=== PATIENT | male | born 1995 | race Caucasian/White ===

== ENCOUNTER 2017-03-26 13:37 | Emergency (ER) | payer BC ==
[~2017-03-26] VITALS: Ht 175.3 cm; Wt 69.9 kg
[2017-03-26 13:50] VITALS: Ht 175.3 cm; Wt 69.9 kg
[2017-03-26] MEDS ORDERED: DEXAMETHASONE SOD INJ 4 MG/ML VIAL IV STA (14:14)
[2017-03-26] MEDS ORDERED: KETOROLAC TROMETHAMINE 30 MG/ML VIAL IV STA (14:14)
[2017-03-26] MEDS ORDERED: SODIUM CHLORIDE 0.9% 1000ML 1,000 ML IV ONE (14:15)
[2017-03-26 14:44] LABS: BASO % 0.1 %; BASO ABS # 0.01 K/uL (0-0.2); COMPLETE YES; EOS % 0.2 %; HEMATOCRIT 49.6 % (42-52); IG% 0.2 %; LYMPH % 10.7 %; LYMPH ABS # 1.17 K/uL (1.2-3.4); MEAN CORPUSCULAR HEMOGLOBIN 31.2 pg (25-34); MEAN CORPUSCULAR HGB CONC 34.3 g/dl (32-36); MEAN PLATELET VOLUME 11.5 fL (7.4-10.4); MONO % 14.2 %; NEUT % 74.6 %; PLATELET COUNT 157 K/uL (130-400); RED BLOOD COUNT 5.45 M/uL (4.7-6.1); WHITE BLOOD COUNT 10.92 K/uL (4.8-10.8)
--- NOTE | 2017-03-26 14:58 | EMERGENCY ROOM VISIT NOTE ---
History First contact with patient: 13:57 Chief Complaint: SORETHROAT Stated Complaint: SEVERE SORETHROAT, INFLAMMED TONSIL, FEVER History of Present Illness The patient is a 22 year old male who presents to the Emergency Room with complaints of a severe sore throat that started 4 days ago. The patient was seen at [facility] 3 nights ago. He was prescribed clindamycin, which he has been taking with minimal relief. He also complains of a fever. He has not taken his temperature at home. He is taking Tylenol and ibuprofen with minimal relief. He denies any cough. No neck pain. He denies any significant headache. The patient was tested for strep at [facility]. The rapid strep was negative. Review of Systems 10 system review performed and negative unless noted in HPI or below Past Medical/Surgical History Otherwise healthy Social History Smoking Status: Never Smoker Occupation Status: [employer] student Current/Historical Medications No Active Prescriptions or Reported Meds Physical Exam Vital Signs Date Time Temp Pulse Resp B/P (MAP) Pulse Ox O2 Delivery O2 Flow Rate FiO2 03/26/17 16:59 36.7 03/26/17 13:50 Room Air 03/26/17 13:50 37.3 94 20 135/88 93 Room Air Physical Exam VITALS: Vitals are noted on the nurse's note and reviewed by myself. Vital signs stable. GENERAL: 22-year-old male, mildly uncomfortable in appearance, SKIN: The skin was without rashes, erythema, edema, or bruising. HEAD: Normocephalic atraumatic. EARS: External auditory canals clear, tympanic membranes pearly diaz without erythema or effusion bilaterally. EYES: Conjunctivae without injection, sclerae without icterus. Extraocular movements intact. NOSE:No sinus tenderness. MOUTH: Mucous membranes tonsils are edematous, erythematous and have white plaques noted bilaterally. No involvement of the soft palate.. Uvula midline. Airway patent. Tongue does not deviate. No trismus. NECK: Lymphadenopathy noted in the anterior cervical chain bilaterally. No nuchal rigidity. HEART: Regular rate and rhythm without murmurs gallops or rubs. LUNGS: Clear to auscultation bilaterally without wheezes, rales or rhonchi. No accessory muscle use. ABDOMEN: Positive bowel sounds x 4.Soft, nontender, without organomegaly. No guarding or rebound tenderness. MUSCULOSKELETAL: No muscle atrophy, erythema, or edema noted. Strength 5/5 throughout. NEURO: Patient was alert and oriented to person place and time. Normal sensation to touch. No focal neurological deficits. Medical Decision & Procedures Laboratory Results 03/26/17 14:35 Red Blood Count 5.45, Mean Corpuscular Volume 91.0, Mean Corpuscular Hemoglobin 31.2, Mean Corpuscular Hemoglobin Concent 34.3, Mean Platelet Volume 11.5, Neutrophils (%) (Auto) 74.6, Lymphocytes (%) (Auto) 10.7, Monocytes (%) (Auto) 14.2, Eosinophils (%) (Auto) 0.2, Basophils (%) (Auto) 0.1, Neutrophils # (Auto ) 8.15, Lymphocytes # (Auto) 1.17, Monocytes # (Auto) 1.55, Eosinophils # (Auto ) 0.02, Basophils # (Auto) 0.01 03/26/17 14:35 Test 03/26/17 14:35 White Blood Count 10.92 K/uL (4.8-10.8) Red Blood Count 5.45 M/uL (4.7-6.1) Hemoglobin 17.0 g/dL (14.0-18.0) Hematocrit 49.6 % (42-52) Mean Corpuscular Volume 91.0 fL (80-100) Mean Corpuscular Hemoglobin 31.2 pg (25-34) Mean Corpuscular Hemoglobin Concent 34.3 g/dl (32-36) Platelet Count 157 K/uL (130-400) Mean Platelet Volume 11.5 fL (7.4-10.4) Neutrophils (%) (Auto) 74.6 % Lymphocytes (%) (Auto) 10.7 % Monocytes (%) (Auto) 14.2 % Eosinophils (%) (Auto) 0.2 % Basophils (%) (Auto) 0.1 % Neutrophils # (Auto) 8.15 K/uL (1.4-6.5) Lymphocytes # (Auto) 1.17 K/uL (1.2-3.4) Monocytes # (Auto) 1.55 K/uL (0.11-0.59) Eosinophils # (Auto) 0.02 K/uL (0-0.5) Basophils # (Auto) 0.01 K/uL (0-0.2) RDW Standard Deviation 40.5 fL (36.4-46.3) RDW Coefficient of Variation 12.3 % (11.5-14.5) Immature Granulocyte % (Auto) 0.2 % Immature Granulocyte # (Auto) 0.02 K/uL (0.00-0.02) Anion Gap 7.0 mmol/L (3-11) Est Creatinine Clear Calc Drug Dose 102.2 ml/min Estimated GFR () 106.7 Estimated GFR (Non- 92.1 BUN/Creatinine Ratio 9.6 (10-20) Calcium Level 9.1 mg/dl (8.5-10.1) Total Bilirubin 0.7 mg/dl (0.2-1) Aspartate Amino Transf (AST/SGOT) 22 U/L (15-37) Alanine Aminotransferase (ALT/SGPT) 21 U/L (12-78) Alkaline Phosphatase 58 U/L (45-117) Total Protein 8.2 gm/dl (6.4-8.2) Albumin 4.0 gm/dl (3.4-5.0) Globulin 4.2 gm/dl (2.5-4.0) Albumin/Globulin Ratio 1.0 (0.9-2) Monoscreen NEG (NEG) Medications Administered Medications (Trade) Dose Ordered Sig/Sangeeta Route Start Time Stop Time Status Last Admin Dose Admin Sodium Chloride 1,000 ml @ 999 mls/hr Q1H1M ONCE IV 03/26/17 14:15 03/26/17 15:15 DC 03/26/17 14:42 999 MLS/HR Dexamethasone Sodium Phosphate (Decadron Inj) 10 mg NOW STAT IV 03/26/17 14:14 03/26/17 14:23 DC 03/26/17 14:38 10 MG Ketorolac Tromethamine (Toradol Inj) 30 mg NOW STAT IV 03/26/17 14:14 03/26/17 14:23 DC 03/26/17 14:39 30 MG Acetaminophen (Tylenol Tab) 1,000 mg NOW STAT PO 03/26/17 16:43 03/26/17 16:45 DC 03/26/17 16:56 1,000 MG ED Course Patient was seen and examined Vital signs including blood pressure were reviewed medications list was verified with patient Labs were obtained, and a saline lock was established The patient was given Decadron 10 mg and Toradol 30 mg IV. He was hydrated with 1 L of normal saline. Upon reevaluation, the patient was slightly more comfortable. We reviewed the results of his workup. He voiced understanding. I reviewed discharge instructions the patient. They voiced understanding and had no further questions. Medical Decision Differential diagnosis: Mononucleosis, strep pharyngitis, viral pharyngitis, influenza, peritonsillar abscess This patient is a 22-year-old male that presents to emergency department with a severe sore throat. His tonsils were enlarged and had weight exudate bilaterally. There were no signs of peritonsillar abscess. His labs reveal mild leukocytosis. Rapid strep was negative. [place] was also negative. I believe he likely has a bacterial tonsillitis. The patient was instructed to continue taking his clindamycin. He was also given a course of steroids to help with inflammation. He was given a short course of narcotics for the throat pain in addition to Magic swizzle. He was instructed to follow up with his primary care physician within the next several days for a recheck. He agrees to return to the emergency department with any new or worsening symptoms. This chart was completed in part utilizing [employer] Speech Voice Recognition software. Attempts were made to minimize the grammatical errors, random word insertions, pronoun errors and incomplete sentences. Any formal questions or concerns about the content, text or information contained within the body of this dictation should be directly addressed to the provider for clarification. Medication Reconcilliation Current Medication List: was personally reviewed by me Impression Primary Impression: Tonsillitis Departure Information Dispostion Home / Self-Care Condition GOOD Prescriptions Hydrocodone/Acetaminophen 5MG/325MG (Chandler 5MG/325MG) Tab 1 TABLET PO Q4H Y for Pain, #15 TAB For Initial Treatment Prov: Rosalinda Bautista PA-C 03/26/17 Diphenhy/Alum/Mag/Sucralfa (Magic Swizzle - Diphenhy/Alum/Mag/Sucralfa) Susp 1 TSP PO Q4H Y for Pain, #200 ML 1 Refill 30ML DIPHENHYDRAMINE SLN 12.5/5ML 60ML MAALOX 4GM CARAFATE SWISH AND SPIT Prov: Rosalinda Bautista PA-C 03/26/17 Prednisone (Prednisone) 50 Mg Tab 50 MG PO DAILY for 4 Days, #4 TAB Prov: Rosalinda Bautista PA-C 03/26/17 Referrals No Doctor, Assigned (PCP) Patient Instructions My [facility] Additional Instructions You were evaluated in the hospital today for a severe sore throat. This is likely due to a bacterial tonsillitis. Please continue clindamycin as prescribed Take entire course of steroids Ibuprofen 800 mg and/or Tylenol 1000 mg every 8 hours. You may also alternate these medications for more effective pain relief: Ibuprofen --4 HRS--> Tylenol --4 HRS--> ibuprofen --4 HRS--> Tylenol .... For severe pain, please take Chandler one tab every 4 hours. Do not take this medication in conjunction with Tylenol as it contains acetaminophen. This medication may cause constipation. Please take a stool softener while taking it Use Magic swizzle every 4 hours as needed for throat pain Increase fluid intake over the next several days Please follow-up with your primary care physician/[facility] services within the next week for recheck Do not hesitate to return to the emergency department with any new, worsening or concerning symptoms
[2017-03-26 15:04] LABS: BUN/CREATININE RATIO 9.6 (10-20); CALCIUM 9.1 mg/dl (8.5-10.1); CREATININE 1.14 mg/dl (0.60-1.40)
[2017-03-26] MEDS ORDERED: ACETAMINOPHEN 500 MG TAB PO STA (16:43)
[2017-03-26 16:59] VITALS: TEMP 36.7
[2017-03-26 17:12] VITALS: BP 125/75; PULSE 85; O2SAT 98
[2017-03-26] MEDS ORDERED: PRED50TA PO (17:12)
[2017-03-26] MEDS ORDERED: MAGIC1 PO (17:12)
[2017-03-26] MEDS ORDERED: HYDR-5688 PO (17:12)
== END 2017-03-26 17:26 | disposition home or self-care (01) ==
LOC: C.EDB 13:39
DX: J03.90 Acute tonsillitis, unspecified (principal)